=== PATIENT | female | born 1990 | race Caucasian/White ===

== ENCOUNTER 2020-06-03 09:05 | Inpatient (IN) | payer OTHER ==
--- NOTE | 2020-06-03 09:59 | HP ---
Past Medical History - Admission Chief Complaint: repeat section History Source: Patient Limitations to Obtaining History: No Limitations - Past Medical History ...: 5 ...Para: 2 ...Spon : 2 ... Weeks Gestation by Dates: 39 ...EDC by Dates: 06/10/20 - Past Surgical History Past Surgical History: Yes: Cholecystectomy, Hx Myomectomy: No Hx Transabdominal Cerclage: No - Smoking History Smoking history: Never smoked Have you smoked in the past 12 months: No - Alcohol/Substance Use Hx Alcohol Use: No History of Substance Use: reports: None - Social History Usual Living Arrangement: Yes: With Spouse History of Recent Travel: No Home Medications - Allergies Allergies/Adverse Reactions: Allergies Allergy/AdvReac Type Severity Reaction Status Date / Time No Known Allergies Allergy Verified 06/03/20 09:46 Review of Systems - Review of Systems Constitutional: reports: No Symptoms Eyes: reports: No Symptoms HENT: reports: No Symptoms Neck: reports: No Symptoms Cardiovascular: reports: No Symptoms Respiratory: reports: No Symptoms Gastrointestinal: reports: No Symptoms Genitourinary: reports: No Symptoms Breasts: reports: No Symptoms Reported Musculoskeletal: reports: No Symptoms Integumentary: reports: No Symptoms Neurological: reports: No Symptoms Endocrine: reports: No Symptoms Hematology/Lymphatic: reports: No Symptoms Psychiatric: reports: No Symptoms Assessment/Plan IMP IUP at 39+ weeks plan repeat section
[2020-06-03 10:40] LABS: BASO % 0.3 % (0-2.0); HEMATOCRIT 35.7 % (32.4-45.2); HEMOGLOBIN 11.8 GM/dL (10.7-15.3); LYMPH % 20.2 % (8-40); MCH 30.9 pg (25.7-33.7); MEAN CELL VOLUME 93.8 fl (80-96); MONO % 8.5 % (3.8-10.2); PLATELET COUNT 157 K/MM3 (134-434); RBC 3.81 M/mm3 (3.60-5.2); RDW 15.7 % (11.6-15.6); WHITE BLOOD COUNT 6.1 K/mm3 (4.0-10.0)
[2020-06-03 10:48] LABS: INR 0.76 (0.83-1.09)
[2020-06-03 10:51] LABS: ACTIVATED PTT 24.5 SECONDS (25.2-36.5)
[2020-06-03 11:01] LABS: BLOOD UREA NITROGEN 6.7 mg/dL (7-18); CALCIUM 8.7 mg/dL (8.5-10.1); CREATININE 0.5 mg/dL (0.55-1.3)
[2020-06-03] MEDS: ELECTROLYTE-148 SOLN 1,000 ML IV SCH (11:16)
[2020-06-03 11:57] VITALS: BMI 48.9
[2020-06-03] MEDS ORDERED: morphine SULFATE/Preservative Free 0.5 MG/ML (1cc Syringe) ONE (12:00)
[2020-06-03] MEDS ORDERED: MIDAZOLAM HCL 2 MG/2 ML SINGLE DOSE VIAL ONE (12:00)
[2020-06-03] MEDS ORDERED: OXYTOCIN 20 UNITS in 0.9% NS 20 UNIT/1,000 ML INFUS.BAG IV ONE ×2 (12:06→14:55)
--- NOTE | 2020-06-03 12:55 | PN ---
Progress Note (short form) - Note Progress Note: Attended C/S for this 29yrs old mother with PNL- nl, GBS- neg- Infant delivered, cried soon after suctioned/ dried cord 3V 9/9 HEENT: Normocephalic, AFOF Chest- B/l Symm, Good air entry, No heart murmur No organomegaly,Nl male FROM, nl hip exam. RNBc watch for resp distress encourage Bf/ bonding
--- NOTE | 2020-06-03 12:56 | OP ---
Operative Note - Note: Operative Date: 06/03/20 Pre-Operative Diagnosis: repeat section Operation: repeat section. pfannensteel abdominal. low transverse uterine incision Findings: baby boy Post-Operative Diagnosis: Same as Pre-op Surgeon: Catrina Jamison Manager Regional Sales: Jamarcus Christie Anesthesia: Spinal Estimated Blood Loss (mls): 700 Operative Report Dictated: Yes
[2020-06-03] MEDS ORDERED: METHYLERGONOVINE MALEATE 0.2 MG/1 ML AMP IM ONE ×2 (14:25→18:39)
--- NOTE | 2020-06-03 14:27 | PN ---
Progress Note (short form) - Note Progress Note: called because pt has some vaginal bleeding examionmation expressed approx 30cc of clote plan methergien Im once.
--- NOTE | 2020-06-03 14:28 | PN ---
Progress Note (short form) - Note Progress Note: I assisted Dr. Jamison at the c/section for the entirety of the case.
[2020-06-03] MEDS: KETOROLAC TROMETHAMINE 30 MG/1 ML VIAL IVPUSH PRN (16:59)
[2020-06-03] MEDS ORDERED: CARBOPROST TROMETHAMINE 250 MCG/ML AMPUL IM ONE (18:37)
--- NOTE | 2020-06-03 18:45 | PN ---
Progress Note (short form) - Note Progress Note: called because pt having clots and vaginal bleeding. pelvic approx 300 cc of blood and clots evacuated plan methergine hemabate.
[2020-06-03] MEDS ORDERED: ACETAMINOPHEN 325 MG TABLET (FP) PO ONE (19:00)
[2020-06-03] MEDS ORDERED: oxyCODONE HCL 5 MG TABLET PO ONE (19:00)
[2020-06-03 21:25] LABS: BASO % 0.1 % (0-2.0); EOS % 0.3 % (0-4.5); HEMATOCRIT 32.9 % (32.4-45.2); HEMOGLOBIN 10.9 GM/dL (10.7-15.3); LYMPH % 10.9 % (8-40); MEAN CELL VOLUME 93.7 fl (80-96); MEAN PLT VOLUME 9.9 fl (7.5-11.1); MONO % 6.7 % (3.8-10.2); PLATELET COUNT 144 K/MM3 (134-434); RBC 3.52 M/mm3 (3.60-5.2); RDW 15.4 % (11.6-15.6); WHITE BLOOD COUNT 8.5 K/mm3 (4.0-10.0)
[2020-06-04] MEDS: KETOROLAC TROMETHAMINE 30 MG/1 ML VIAL IVPUSH PRN (06:01)
[2020-06-04 09:12] LABS: BASO % 0.1 % (0-2.0); EOS % 0.5 % (0-4.5); HEMATOCRIT 28.7 % (32.4-45.2); HEMOGLOBIN 9.5 GM/dL (10.7-15.3); LYMPH % 14.6 % (8-40); MCH 30.8 pg (25.7-33.7); MCHC 33.1 g/dl (32.0-36.0); MEAN CELL VOLUME 92.9 fl (80-96); MEAN PLT VOLUME 9.3 fl (7.5-11.1); MONO % 8.4 % (3.8-10.2); NEUT % 76.4 % (42.8-82.8); PLATELET COUNT 149 K/MM3 (134-434); RBC 3.09 M/mm3 (3.60-5.2); RDW 15.7 % (11.6-15.6); WHITE BLOOD COUNT 7.2 K/mm3 (4.0-10.0)
--- NOTE | 2020-06-04 10:19 | PN ---
Post Progress Note Post Day: 1 Type of Delivery: Repeat C/S Vital Signs: Vital Signs Temperature 99.8 F H 06/04/20 05:59 Pulse Rate 108 H 06/04/20 05:59 Respiratory Rate 20 06/04/20 06:00 Blood Pressure 138/80 06/04/20 05:59 O2 Sat by Pulse Oximetry (%) 100 06/03/20 13:50 Breast Exam: Yes: Soft Uterus: Yes: Fundus Firm Incision: Yes: Dressing dry and intact Abdomen/GI: Yes: Abdomen soft, Tolerating PO Lochia, amount: Small - Labs Labs: CBC WBC 7.2 K/mm3 (4.0-10.0) 06/04/20 08:44 RBC 3.09 M/mm3 (3.60-5.2) L 06/04/20 08:44 Hgb 9.5 GM/dL (10.7-15.3) L 06/04/20 08:44 Hct 28.7 % (32.4-45.2) L 06/04/20 08:44 MCV 92.9 fl (80-96) 06/04/20 08:44 MCH 30.8 pg (25.7-33.7) 06/04/20 08:44 MCHC 33.1 g/dl (32.0-36.0) 06/04/20 08:44 RDW 15.7 % (11.6-15.6) H 06/04/20 08:44 Plt Count 149 K/MM3 (134-434) 06/04/20 08:44 MPV 9.3 fl (7.5-11.1) 06/04/20 08:44 Absolute Neuts (auto) 5.5 K/mm3 (1.5-8.0) 06/04/20 08:44 Neutrophils % 76.4 % (42.8-82.8) 06/04/20 08:44 Lymphocytes % 14.6 % (8-40) D 06/04/20 08:44 Monocytes % 8.4 % (3.8-10.2) 06/04/20 08:44 Eosinophils % 0.5 % (0-4.5) 06/04/20 08:44 Basophils % 0.1 % (0-2.0) 06/04/20 08:44 Nucleated RBC % 0 % (0-0) 06/04/20 08:44 Assessment/Plan POD#1, hemodynamically stable s/p methergine for PPH, slightly elevated BPs 130s/80s Monitor vitals Advance diet as tolerated Ambulation encouraged Pain management Consider discharge in 1-2 days
[2020-06-04] MEDS: IBUPROFEN 600 MG TABLET (FP) PO PRN ×3 (12:00→20:44)
[2020-06-04] MEDS ORDERED: BISACODYL 10 MG SUPP.RECT RC PRN (12:56)
[2020-06-04] MEDS: SIMETHICONE 80 MG TAB.CHEW (FP) PO PRN ×2 (16:41→20:45)
[2020-06-04] MEDS: ELECTROLYTE-148 SOLN 1,000 ML IV SCH (20:15)
[2020-06-04] MEDS ORDERED: oxyCODONE HCL 5 MG TABLET PO PRN (20:32)
[2020-06-04] MEDS: ACETAMINOPHEN 325 MG TABLET (FP) PO PRN (20:43)
[2020-06-04 22:23] VITALS: TEMP 97.9
[2020-06-05 09:54] VITALS: BP 124/76; PULSE 95
--- NOTE | 2020-06-05 10:08 | DS ---
Physical Exam-FARMWORKER VEGETABLE Vital Signs: Vital Signs Temperature 97.9 F 06/05/20 09:00 Pulse Rate 95 H 06/05/20 09:00 Respiratory Rate 06/05/20 09:00 Blood Pressure 124/76 06/05/20 09:00 O2 Sat by Pulse Oximetry (%) 100 06/03/20 13:50 Labs: CBC, BMP 06/04/20 08:44 06/03/20 09:58 Delivery - Delivery Type of Anesthesia: Spinal EBL (cc): 700 Delivery, Single - Stages of Labor Date of Delivery: 06/03/20 Time of Delivery: 12:36 Time Placenta Delivered: 12:37 - Condition of Infant Data Solutions Architect/Machine Cloth Examiner Present: Yes Name: Demond Olivera Gender: Male Weight: 3.374 kg Total Hours ROM (Hrs/Mins): 3 minutes - 1 Minute Total Score: 9 5 Minutes Total Score: 9 - [place] Feeding Plan Initial Plan: Elected not to breastfeed exclusively throughout hospitalization Remarks - Remarks Remarks: pt. without complaints vss- af abd :soft, nt ,nd, bs+ dressing removed: inc c/d/i w ben ve: min lochia ext: no calf tenderness b/l a/p pod 2 s/p pt had pph episode: responded to uterotonics asymptomatic anemia plan for d/c to home today w hematinics and analgesics f/u in clinic next week for staple removal Discharge Summary Problems reviewed: Yes Reason For Visit: C SECTION Procedures: Principal: section Hospital Course: admitted for rpt csection uncomplicated delivery PP course: had episode of PPH treated w uterotonics remainder uneventful Condition: Good - Instructions Diet, Activity, Other Instructions: regular diet activity as tolerated, but avoid strenuous activity , heavy lifting or intercourse wound care: wash with warm water & soap, rinse well, pat dry, leave open to air Disposition: HOME - Home Medications Comprehensive Discharge Medication List: Ambulatory Orders 19 Tablet 1 tab PO DAILY 06/03/20
[2020-06-05] MEDS: ACETAMINOPHEN 325 MG TABLET (FP) PO PRN (10:46)
[2020-06-05] MEDS: SIMETHICONE 80 MG TAB.CHEW (FP) PO PRN (10:46)
[2020-06-05] MEDS: IBUPROFEN 600 MG TABLET (FP) PO PRN (10:47)
--- NOTE | 2020-06-08 17:00 | PATH ---
Surgical Pathology Report Patient Name: ARACELIS FISCHER Med. Rec. #: [id number] /Age/Gender: 1990 (Age: 29) / F Account: [id number] Location: [facility] OBS/ALTERNATIVE ENERGY ENGINEER Taken: 06/03/2020 Received: 06/04/2020 Reported: 06/08/2020 Physicians: Catrina Jamison M.D. Specimen(s) Received PLACENTA Clinical History Repeat , 39 weeks, previous x2 Final Diagnosis PLACENTA: THIRD TRIMESTER PLACENTA. TRIVASCULAR CORD. MEMBRANES WITH NO DIAGNOSTIC ABNORMALITIES. Electronically Signed Stephen Rueda M.D. Gross Description The specimen is received fresh labeled placenta and is a 432 gram, 16.0 x 14.5 x 3.0 cm. placenta with attached membranes and umbilical cord. The attached membranes are zaragoza, translucent with focal opacities and insert marginally. The umbilical cord measures 26.5 cm. in length and averages 1.2 cm. in diameter. The cord inserts eccentrically, 2 cm. to the nearest margin. No true knots or strictures are identified. Cut surface of the umbilical cord reveals 3 vessels. The surface is denton-blue with minimal fibrin deposition and appropriate caliber vessels. The maternal surface is red-brown with focal defects. Sectioning reveals red-brown, spongy parenchyma. No lesions are identified. Driller Multiple Spindle sections are submitted in three cassettes as follows: 1- membrane rolls and umbilical cord; 2-3- full thickness sections of placenta. /06/07/2020 saudi/06/07/2020
--- NOTE | 2020-06-08 19:17 | OP ---
DATE OF OPERATION: 06/03/2020 PREOPERATIVE DIAGNOSIS: Repeat section. POSTOPERATIVE DIAGNOSIS: Repeat section. PROCEDURE: Repeat section through Pfannenstiel, abdominal low transverse uterine incision. SURGEON: Torsten Lauren MD. HOTEL OPERATIONS MANAGER: Jamarcus Christie MD. ANESTHESIA: Spinal. ESTIMATED BLOOD LOSS: 700 mL. PROCEDURE AND FINDINGS: Following successful induction of spinal anesthesia, patient in the dorsal supine position was prepped and draped in the usual for this type of procedure. A Pfannenstiel abdominal incision was made, was carried down to level of the fascia. Fascia was identified, entered. Peritoneum was identified, entered. Upon entering peritoneal cavity, uterus was identified, and a low transverse uterine incision was made, and a baby was delivered to the weigh machine operator in attendance. Following this, placenta, membranes were removed. Endometrial contents were cleaned using a dry lap pad. Then the uterine incision was identified using T-clamps. Then, the uterine incision was closed using number 1 Vicryl in a continuous locking stitch, locking every stitch. There was excellent hemostasis at the end of this procedure. Following this, the gutters were cleaned. All blood, clots, debris were removed. The area was observed for hemostasis. Once there was excellent hemostasis, the case was terminated. The fascia was closed using number 1 Vicryl in continuous stitch. Skin incision was closed using ben. TORSTEN LAUREN MD /[id number]
== END 2020-06-05 13:20 | disposition home or self-care (01) | DRG 540 ==
LOC: JLDR 09:05 → J3W 15:50
PROVIDERS: ADMIT Specialist; ATTEND Specialist
PROC: 10D00Z1 Extraction of Products of Conception, Low, Open Approach (ICD-10-PCS; principal; 2020-06-03)
DX: O82 Encounter for cesarean delivery without indication (principal); O34.219 Maternal care for unspecified type scar from previous cesarean delivery; Z37.0 Single live birth; Z3A.39 39 weeks gestation of pregnancy; O72.2 Delayed and secondary postpartum hemorrhage; O90.81 Anemia of the puerperium; D64.9 Anemia, unspecified; Z90.49 Acquired absence of other specified parts of digestive tract
CPT/HCPCS: 36415; 80048; 85025; 85610; 85730; 86780; 86850; 86900; 86901; 88307-TC